=== PATIENT | male | born 1955 | race Caucasian/White ===

== ENCOUNTER 2016-11-07 21:08 | Emergency (ER) | payer OTHER ==
[2016-11-07 21:28] VITALS: TEMP 97.7
--- NOTE | 2016-11-07 21:28 | EDPHY ---
General - History Smoking Status: Never smoked Narrative: CHIEF COMPLAINT: Head injury, loss consciousness HISTORY OF PRESENT ILLNESS: Patient was working on a ladder with describes door when something solid structure in the forehead. He does not know what it is. There is a loss of consciousness of uncertain duration. His spouse was at the house and outside when this happened. She said that he walked into the house and was acting confused. He does not recall the exact details of the event. He has a forehead laceration as complaining of headache. He has no neck or back pain that is acute. He has chronic low back pain. He has some tingling of the hands and feet. Has no incontinence. He has no chest or abdominal pain no other associated complaints or modifying factors. REVIEW OF SYSTEMS: Ten systems reviewed and are negative unless otherwise noted in the HPI EXAMINATION General Appearance: Alert, no distress. Hearing intact to normal conversation Head: normocephalic. Forehead laceration. No Drew sign. No raccoon eyes. Eyes: Pupils equal and round, no conjunctival pallor or injection. EOMs intact. No nystagmus. ENT, Mouth: Mucous membranes moist. Uvula midline. Neck: C-collar in place. This was not removed. No outward signs of trauma. With trachea midline. Respiratory: Lungs are clear to auscultation Cardiovascular: Regular rate and rhythm. No murmur. Pulses intact distally. Gastrointestinal: Abdomen is soft and nontender. No tympany rigidity. Back: non-tender, no bony abnormalities. No crepitus, step-off or deformity. No ecchymosis, lacerations or abrasions. Neurological: Alert to person and place. Strength is symmetric in the arms and legs. Anesthetic in the fingertips and toes bilaterally. No pronator drift. No dysmetria. Normal [id number]. Skin: Warm and dry, no rash. No lacerations abrasions or contusions of the trunk her limbs. Forehead lacerations: 2 lacerations, 3 cm total, chevron and v-shaped lacerations. noted with home butterfly strips closure. Extremities: Nontender, no pedal edema. Symmetric range of motion. DIFFERENTIAL DIAGNOSES: Including but not limited to concussion, closed-head injury, intracranial hemorrhage, skull fracture, subdural hematoma, epidural hematoma, forehead laceration MDM: 9:25 p.m. Blunt trauma to the forehead with concussive symptoms and forehead laceration. Patient is somnolent intermittently confused. He is not actively vomiting. He reports paresthesias of the hands and feet but is neuro intact with strength. He has no abnormalities of the back, abdomen or chest. CT scans of the head and C-spine have been ordered stat he is already in Imaging Department for these. Re-evaluated upon return to the part minute and closure of the forehead laceration. 10:05 p.m. Notified by radiologist that there is a small fracture of the outer table of the frontal bone on the right side. I have discussed this with Dr. Chirinos, neurosurgery, informing him of the fracture and asking for his recommendation. I specifically asked him if he recommends antibiotics. He informs that there is no need for antibiotics. He also recommends that there is no need for mandatory outpatient follow-up, but that he would be happy to see the patient in follow-up as well. 10:15 p.m. I have re-evaluated the patient and anesthetize the wound. He is significantly improved since time of arrival. He is now mentating 100% appropriately. He now has good recollection of the events of the injury and states that the metal mechanism on the rollers of the garage door which struck him in the head. He is now laughing, joking and conversing appropriately. Wound will be irrigated and suture repaired. We have followed the recommendations neurosurgeon and discharged home with outpatient follow-up. I have discussed return to the emergency department precautions including worsening headache, vomiting, confusion. 11:30 p.m. Blunt trauma to the forehead with frontal sinus fracture and laceration of the forehead. The wounds have been irrigated and closed. There is no compromise of the galea by my estimation on visualization through the wound. I have elected to treat him with Augmentin prophylactically. He is to follow up with Neurosurgery in the next 2-3 days and his primary care physician early next week. Return to the ER for worsening pain, nausea, vomiting or fever. He is discharged home in good condition, neuro intact, ambulatory without assistance. PROCEDURE: Laceration repair Consent: Verbal Location: Forehead Length of repair: 3 cm total Complexity: Simple Layer involvement: Single Anesthesia: Local, 1% lidocaine plain, 0.25% Marcaine with epinephrine 5 mL total Irrigation: Extensive Debridement: None Procedure description: After good anesthesia wound was irrigated and explored. No foreign body noted. There is no compromise of the galea aponeurosis. There is no wound to the periosteum or ostium that can be visualized through the laceration. Wound was then closed with simple interrupted sutures without complication. Good approximation of the wound borders. Tolerated well Suture/Staple material: 6-0 Prolene, simple interrupted sutures x8 Wound care: Routine as discussed Suture/Staple removal: 5 Days SUPERVISION: This patient was independently evaluated without direct examination by the attending physician. Case was discussed with attending physician. (Cruz Jiang) Discussion: PHYSICIAN DOCUMENTATION: The patient was evaluated and managed by the Physician Rate And Cost Analyst and myself. I have reviewed the chart and agree with the findings and plan of care as documented. In addition, I examined the patient myself several times. History confirmed as hit in the head in the forehead at home by garage door rollers. Physical findings as follows: 2 superficial forehead lacerations. At 11:00 p.m. his cervical spine is nontender and the patient has a normal mental status. Cervical spine is cleared clinically by myself. Patient and spouse comfortable with DC. CT reviewed by myself. Dr. Chirinos consulted by Cruz PITTS. Neurosurgeon recommended primary closure of the lacerations, discharge, follow up in their office. I am the secondary supervising physician. (Otis Vazquez) - Objective Vital Signs: Initial Vital Signs Temperature (C) 36.5 C 11/07/16 21:26 Heart Rate 95 11/07/16 21:26 Respiratory Rate 17 11/07/16 21:26 Blood Pressure 126/97 H 11/07/16 21:26 O2 Sat (%) 96 11/07/16 21:26 O2 Delivery Mode Room Air Allergies/Adverse Reactions: No Known Allergies Allergy (Unverified 03/16/13 02:36) Home Medications: Medication Instructions Recorded Wellbutrin 100mg (RX) 02/23/15 Zoloft 100mg (RX) 02/23/15 Amoxicillin/Clavulanate Pot 875 mg PO BID #20 tab 11/07/16 [Augmentin 875 MG TAB (*)] SIMVASTATIN 11/07/16 Laboratory Results: 11/07/16 21:22 POC Hgb 17.3 gm/dL gm/dL (14.5-17.3) POC Hct 51 % H % (42.8-50.6) POC Sodium 141 mEq/L mEq/L (134-144) POC Potassium 4.0 mEq/L mEq/L (3.3-5.0) POC Chloride 104 mEq/L mEq/L (96-108) POC BUN 19 mg/dL mg/dL (7-23) POC Creatinine 1.2 mg/dL mg/dL (0.8-1.5) POC Glucose 75 mg/dL mg/dL (70-100) Medications Given: Discontinued Medications Amoxicillin/Clavulanate Potassium (Augmentin 875mg) 875 mg PO EDNOW ONE PRN Reason: Protocol Stop: 11/07/16 23:36 Last Admin: 11/07/16 23:38 Dose: 875 mg Point of Care Test Results: 11/07/16 21:22 POC Sodium 141 POC Potassium 4.0 POC Chloride 104 POC BUN 19 POC Creatinine 1.2 POC Glucose 75 Departure - Departure Disposition: Home, Routine, Self-Care Clinical Impression: Concussion Qualifiers: Encounter type: initial encounter Loss of consciousness presence/duration: with LOC of 30 min or less Qualified Code(s): S06.0X1A - Concussion with loss of consciousness of 30 minutes or less, initial encounter Forehead laceration Qualifiers: Encounter type: initial encounter Qualified Code(s): S01.81XA - Laceration without foreign body of other part of head, initial encounter Frontal sinus fracture Qualifiers: Encounter type: initial encounter Condition: Good Instructions: Laceration (ED), Concussion (ED) Additional Instructions: Wound Care Follow-Up: Removal of sutures in 5 days. Suture removal is complimentary in uncomplicated cases. Infection or abnormal findings would require reevaluation by the MD. In that case, you may be billed. Referrals: MD IRWIN [Other] - As per Instructions Evens Chirinos MD [Medical Doctor] - 2-3 days, call for appt. Prescriptions: Amoxicillin/Clavulanate Pot [Augmentin 875 MG TAB (*)] 875 mg PO BID #20 tab
[2016-11-07] MEDS ORDERED: AMOXICILLIN/CLAVULANATE POT 875/125 MG TAB PO ONE (23:35)
[2016-11-07 23:49] VITALS: BP 126/97; PULSE 95; RESP 16; O2SAT 96
== END 2016-11-07 23:50 | disposition home or self-care (01) ==
PROC: 0HQ1XZZ Repair Face Skin, External Approach (ICD-10-PCS; principal; 2016-11-07)
DX: S02.19XA Other fracture of base of skull, initial encounter for closed fracture (principal); S06.0X1A Concussion with loss of consciousness of 30 minutes or less, initial encounter; S01.81XA Laceration without foreign body of other part of head, initial encounter; X58.XXXA Exposure to other specified factors, initial encounter; Y92.009 Unspecified place in unspecified non-institutional (private) residence as the place of occurrence of the external cause; Y99.8 Other external cause status; Y93.89 Activity, other specified
CPT/HCPCS: 82947-QW